=== PATIENT | female | born 1970 | race African-American/Black ===

== ENCOUNTER 2016-11-01 20:00 | Observation (INO) ==
[2016-11-01] MEDS ORDERED: cloNIDine 0.1 MG TABLET PO STA (21:07)
[2016-11-01] MEDS ORDERED: ONDANSETRON 4 MG/2 ML VIAL IV STA (21:07)
[2016-11-01] MEDS ORDERED: SODIUM CHLORIDE 0.9% 500 ML IV STA (21:07)
[2016-11-01] MEDS ORDERED: MECLIZINE 25 MG TABLET PO STA (21:07)
[2016-11-01 21:48] LABS: Basophils % 0.3 % (0.0-0.8); Eosinophils # 0.1 10*3/uL (0.0-0.87); Eosinophils % 0.9 % (0.00-10.9); Hemoglobin 12.1 GM/DL (12.0-16.0); Immature Granulocytes % 0.4 %; Immature Granulocytes Absolute 0.03 #; Lymphocytes # 1.9 10*3/uL (1.4-4.0); Lymphocytes % 24.3 % (21.3-54.2); Mean Corpuscular HGB Conc 32.7 GM/DL (32-36); Mean Corpuscular Hemoglobin 27 PG (27-34); Mean Corpuscular Volume 81.9 FL (87-102); Mean Platelet Volume 10.5 FL (9.6-12.0); Monocytes # 0.5 10*3/uL (0.11-0.8); Monocytes % 6.1 % (1.7-12.7); Neutrophils # 5.4 10*3/uL (1.4-7.4); Platelet Count 267 T/CUMM (130-400); Red Blood Count 4.52 MC/CUMM (3.8-5.5); Red Cell Distribution Width 12.9 % (9.3-17.3); White Blood Count 7.9 T/CUMM (4-12)
[2016-11-01] MEDS ORDERED: cloNIDine 0.1 MG TABLET ONE (21:49)
[2016-11-01] MEDS ORDERED: MECLIZINE 25 MG TABLET ONE (21:49)
[2016-11-01] MEDS ORDERED: ONDANSETRON 4 MG/2 ML VIAL ONE (21:49)
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
[2016-11-01 21:57] LABS: Apearance,Urine CLOUDY (Clear); Bilirubin,Urine Negative (Negative); Blood, Urine Negative (Negative); Glucose,Urine (UA) Negative (Negative); Ketones,Urine Negative (Negative); Mucus,Urine Occasional /LPF (Occasional); Nitrite,Urine Negative (Negative); Protein,Urine Negative; Squamous Epithelial Cell,Urine Few /HPF (0-10); Urine Color Yellow (Yellow); Urine Specific Gravity 1.016 (1.001-1.035); Urine Urobilinogen < 2.0 EU/DL (0.2-1.0); WBC,Urine 2 /HPF (0-6)
[2016-11-01 22:11] LABS: Lymphocytes 23 % (20-55); Segmented Neutrophils 70 % (50-85)
[2016-11-01 22:12] LABS: Platelet Estimate Adequate; Total Cells Counted 100
[2016-11-01 22:14] LABS: Alanine Aminotransferase 21 U/L (13-56); Albumin 3.5 G/DL (3.4-5.0); Alkaline Phosphatase 142 U/L (45-117); Aspartate Amino Transferase 15 U/L (0-37); Bilirubin,Total < 0.39 MG/DL (0.2-1.0); Blood Urea Nitrogen 12 MG/DL (7-18); Calcium 9.3 MG/DL (8.5-10.1); Glucose 100 MG/DL (74-106); Magnesium 2.3 MG/DL (1.8-2.4); Osmolality,Calculated 278.4 MOS/KG (273-304); Potassium 3.5 MMOL/L (3.5-5.1); Sodium 140 MMOL/L (136-145); Total Protein 8.4 G/DL (6.4-8.3); Troponin I Only < 0.015 NG/ML (0.00-0.045)
[2016-11-01] MEDS ORDERED: ASPIRIN EC 325 MG TABLET PO STA (23:44)
[2016-11-01] MEDS ORDERED: ASPIRIN 325 MG TABLET ONE (23:49)
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
[2016-11-02] MEDS ORDERED: PROMETHAZINE 25 MG/1 ML VIAL IM PRN (00:22)
[2016-11-02] MEDS ORDERED: ONDANSETRON 4 MG/2 ML VIAL IV PRN (00:22)
[2016-11-02] MEDS: SODIUM CHLORIDE 0.9% 1,000 ML IV SCH (01:05)
[2016-11-02 03:32] LABS: Barbiturates Screen,Urine Negative (Negative); Benzodiazepines Screen,Urine Negative (Negative); Cannabinoid Screen,Urine Negative (Negative); Opiate Screen,Urine Negative (Negative); Phencyclidine Screen,Urine Negative (Negative)
[2016-11-02 03:37] LABS: Troponin I Only < 0.015 NG/ML (0.00-0.045)
[2016-11-02 03:43] LABS: Risk Ratio 3.35
[2016-11-02 05:22] LABS: Basophils % 0.1 % (0.0-0.8); Eosinophils % 0.6 % (0.00-10.9); Hematocrit 35.5 VOL% (35.7-47.0); Hemoglobin 11.4 GM/DL (12.0-16.0); Immature Granulocytes % 0.3 %; Immature Granulocytes Absolute 0.02 #; Lymphocytes # 2.4 10*3/uL (1.4-4.0); Lymphocytes % 35.2 % (21.3-54.2); Mean Corpuscular HGB Conc 32.1 GM/DL (32-36); Mean Corpuscular Hemoglobin 26 PG (27-34); Mean Corpuscular Volume 81.8 FL (87-102); Mean Platelet Volume 10.9 FL (9.6-12.0); Monocytes # 0.4 10*3/uL (0.11-0.8); Monocytes % 5.7 % (1.7-12.7); Neutrophils % 58.1 % (38.7-73.9); Platelet Count 270 T/CUMM (130-400); Red Blood Count 4.34 MC/CUMM (3.8-5.5); Red Cell Distribution Width 12.9 % (9.3-17.3); White Blood Count 6.9 T/CUMM (4-12)
[2016-11-02 06:06] LABS: Albumin 3.2 G/DL (3.4-5.0); Bilirubin,Total 0.4 MG/DL (0.2-1.0); Calcium 8.7 MG/DL (8.5-10.1); Magnesium 2.3 MG/DL (1.8-2.4); Osmolality,Calculated 278.4 MOS/KG (273-304); Potassium 3.9 MMOL/L (3.5-5.1); Risk Ratio 3.66; Thyroid Stimulating Hormone 0.743 uIU/ml (0.358-3.74); Total Protein 7.1 G/DL (6.4-8.3)
[2016-11-02 06:13] LABS: Eosinophils 1 % (0-10); Lymphocytes 26 % (20-55); Platelet Estimate Adequate; Polychromasia Slight; Segmented Neutrophils 67 % (50-85); Target Cells Slight; Total Cells Counted 100
--- NOTE | 2016-11-02 06:34 | CT Report ---
History is dizziness The ventricles are normal in size. No acute intracranial hemorrhage, mass effect, or evidence of acute cortical stroke seen. Impression: No acute intracranial pathology seen. The CT exam was performed using one or more of the following dose reduction techniques: Automated exposure control, adjustment of the mA and/or kV according to patient size, or use of iterative reconstruction technique. PROCEDURE INTERPRETED AT [facility] DEPARTMENT OF RADIOLOGY Final Report Signed by: Dr. Rose Rodriguez
--- NOTE | 2016-11-02 06:36 | EKG Report ---
Stationary ECG Study [facility] ER Test Date: 11/01/2016 9:30:14 PM Pat Name: MIMA AMOS Department: Room: 528 Gender: F Medical Staff Manager: : 1970 Requested by: Chano Lugo Order Number: [id number] Joe MD: TAYA KO Intervals Cardale Rate: 58 P: 50 MO: 175 QRS: 30 QRSD: 87 T: 37 QT: 426 QTc: 423 Interpretive Statements SINUS RHYTHM MINIMAL VOLTAGE CRITERIA FOR LVH, CONSIDER NORMAL VARIANT Electronically Signed On 11-02-16 07:02:32 CDT by TAYA KO [email or web address]
--- NOTE | 2016-11-02 07:39 | XRay Report ---
Exam: XR chest 1V portable Indication: Shortness of breath Comparison study: None Findings: The heart, mediastinum, and bony structures are within normal limits. There is no focal consolidation, pneumothorax or pleural effusion identified. Impression: No acute cardiopulmonary process. PROCEDURE INTERPRETED AT [facility] DEPARTMENT OF RADIOLOGY Final Report Signed by: Nikita Lemons
--- NOTE | 2016-11-02 07:49 | Ultrasound Report ---
History his confusion Grayscale, spectral Doppler, and color flow analysis performed and interpreted No significant plaque seen on the two-dimensional images Systolic velocities are 100 on the right and 105 on the left Peak systolic ratios are 1.5 the right and 1.9 on the left There is antegrade flow in both vertebral arteries Impression: No significant plaque with no significant stenosis by NASCET criteria PROCEDURE INTERPRETED AT [facility] DEPARTMENT OF RADIOLOGY Final Report Signed by: Dr. Rose Rodriguez
--- NOTE | 2016-11-02 08:14 | XRay Report ---
History short of breath Comparison 11/01/2016 The heart is normal in size for technique. The lungs are clear. Impression: No acute pathology seen. PROCEDURE INTERPRETED AT [facility] DEPARTMENT OF RADIOLOGY Final Report Signed by: Dr. Rose Rodriguez
[2016-11-02] MEDS: amLODIPine 10 MG TABLET PO SCH (08:43)
[2016-11-02] MEDS: PANTOPRAZOLE 40 MG TABLET PO SCH (08:44)
[2016-11-02] MEDS: ENOXAPARIN 40 MG/0.4 ML SYRINGE SUBCUT SCH (08:46)
[2016-11-02] MEDS: ASPIRIN EC 81 MG TABLET PO SCH (08:46)
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
--- NOTE | 2016-11-02 13:08 | Magnetic Resonance Report ---
History: Confusion. Dizziness. Transient slurred speech Date: 11/02/2016 Study: MRI brain without IV contrast Comparison exam: No previous brain MRI available The brain was imaged in 3 planes on the 1.2 Ceci open magnet without IV contrast, to include diffusion, T2, FLAIR, gradient echo, and T1-weighted sequences. The ventricles are midline in position without evidence of hydrocephalus. There is no Chiari I malformation. There is no gross pituitary mass. There is no evidence of acute ischemia on the diffusion sequence. There is no mass or parenchymal hemorrhage. There is no extra-axial hematoma. There is a normal flow void in the superior sagittal sinus. There is no gross flow abnormality in the eek of Monique area. Impression: Normal noncontrast MRI brain PROCEDURE INTERPRETED AT [facility] DEPARTMENT OF RADIOLOGY Final Report Signed by: Dr. Eileen Chaudhary
--- NOTE | 2016-11-02 15:38 | Neurology Consult Note ---
History of Present Illness History of present illness: 46 years old right-handed -[place] lady without significant past medical history admitted the hospital with one episode of dizziness and acute vertigo along with nausea and some vomiting. Patient reported that she does get dizzy and vertigo spells off and on almost 3 or 4 times a month. She also reported she gets headaches 3 or 4 times a month as well. She is to get very frequent migraine headaches but that has gotten better. Patient reported that she does get dizzy and vertigo spells associated with nausea. She also has been having off and on left hand numbness and tingling. MRI of the brain is negative. Home Medications Medication Instructions Recorded Confirmed Type No Known Home Medications [No 11/02/16 11/02/16 History Known Home Medications] Allergies Allergy/AdvReac Type Severity Reaction Status Date / Time morphine Allergy Unknown/Unable Verified 11/01/16 20:45 to obtain 12 point system: reviewed and no additional remarkable complaints except as stated Medical,Surgical,& Family Hx - Medical History Neurology: History of: Vertigo Genitourinary: History of: Kidney Stones - Surgical History HEENT Surgeries: Surgical HX of: Tonsilectomy & Adenoidectomy Reproductive Surgeries: Surgical HX of;: Tubal Ligation Orthopedic Surgeries: Surgical HX of;: Orthopedic Surgery - Family History Family History: Reports;: Family Cancer, Family Diabetes, Family Hypertension, Family Stroke - Social History Smoking Status: Never smoker Frequency of Alcohol Use: None Type of Drug Use: None Exam - Constitutional Vitals: Period Temp Pulse Resp BP Sys/Reinoso Pulse Ox Last 24 Hr 97.3 F-98.4 F 46-72 16-18 101-163/63-108 97-100 Exam: GENERAL: Patient is in no acute distress. NECK: Neck is supple. There is no JVD. No carotid bruits present. No thyroid masses. CVS: First and second heart sounds are normal. There is no S3 present. Regular rate and rhythm. RESPIRATORY: Lungs are clear to auscultation without any rales or rhonchi. ABDOMEN: Soft and non-tender. Bowel sounds are present. There is no hepatosplenomegaly. EXT: There is no palpable edema. Peripheral pulses are present. Skin: No rashes Central Nervous system: General: Alert, awake and Oriented x 3 Speech: Fluent Comprehension: Intact and normal Facial expressions: Normal Cranial Nerves: CN1/Olfactory: Normal CN II/ Optic: Normal, Visual Valdez unreliable CN III, and : BIPIN & EOMI CN V: Normal & intact CN VII: face is symmetric CNVIII: Normal CN XI/X/XI/XII: Intact and Normal Motor: Bulk and Tone is normal. Strength in the right 5/5 Strength in the left 5/5 Sensory: Decreased for all the modalities of PP, LT and temp sense in the left median nerve distribution Reflexes: 1+ and symmetrical Cerebellar function: Normal finger to nose and heel to pagan testing. Toes: Equivocal Gait: Normal heel to heel and toe to toe and tandem walk. Results - Labs CBC & BMP: 11/02/16 03:30 11/02/16 03:30 Assessment and Plan (1) Basilar migraine Status: Acute Assessment and plan: Elavil 25 mg p.o. at bedtime Current Visit: Yes (2) Carpal tunnel syndrome Status: Acute Assessment and plan: Nerve conduction study/EMG as an outpatient Okay to go home when okay with PCP Follow-up in 2 weeks Current Visit: Yes
[2016-11-02] MEDS ORDERED: AMITRIPTYLINE 25 MG TABLET PO SCH (21:00)
[2016-11-03] MEDS: SODIUM CHLORIDE 0.9% 1,000 ML IV SCH (03:26)
[2016-11-03] MEDS: amLODIPine 10 MG TABLET PO SCH (09:58)
[2016-11-03] MEDS: ASPIRIN EC 81 MG TABLET PO SCH (09:59)
[2016-11-03] MEDS: ENOXAPARIN 40 MG/0.4 ML SYRINGE SUBCUT SCH (09:59)
[2016-11-03] MEDS: PANTOPRAZOLE 40 MG TABLET PO SCH (09:59)
--- NOTE | 2016-11-03 11:34 | Discharge Summary ---
Hospital Course - Hospital Course Hospital Course: 46 years old right-handed -[place] lady without significant past medical history admitted the hospital with one episode of dizziness and acute vertigo along with nausea and some vomiting. Patient reported that she does get dizzy and vertigo spells off and on almost 3 or 4 times a month. She also reported she gets headaches 3 or 4 times a month as well. She is to get very frequent migraine headaches but that has gotten better. Patient reported that she does get dizzy and vertigo spells associated with nausea. She also has been having off and on left hand numbness and tingling. MRI of the brain is negative. neurology consulted , diagnosed Basilar Migraine started on elevail po , pt did well dizziness and vertigo improved , neurology OK her to be discharged Diagnosis - Discharge Diagnosis (1) Basilar migraine Status: Acute (2) Hypertension Status: Acute Specialty Discharge - Follow Up or Referrals Follow up with: Yamil Jacob MD [Physician] - 12/02/16 10:00 am Discharge Plan - Discharge Data Condition at Discharge: Stable Discharge Diet: low fat, low cholesterol Driving: no restrictions - Discharge Medications New Amitriptyline [Elavil] 25 mg PO BEDTIME #30 tablet amLODIPine [Norvasc] 10 mg PO DAILY #90 tablet - Follow Up or Referral Follow Up: Yamil Jacob MD [Physician] - 12/02/16 10:00 am - Forms/Instructions Instructions: Transient Ischemic Attack (DC), Migraine Headache (DC), Heart Healthy Diet (DC), Self Care Measures After a Stroke (DC), Hypertension (DC) Exam - Constitutional Vitals: Period Temp Pulse Resp BP Sys/Reinoso Pulse Ox Last 24 Hr 97.1 F-98.2 F 56-70 16-20 97-117/60-68 95-100 heent, pearle neck, supple. chest clear. cvs, s1 s2. abd, soft, bs+ plumbing manager, alert orientedx3 afocal DS: Provider Date of admission: 11/01/16 23:45 Primary care physician: . No PCP Attending physician on admission: Cristobal Medley MD Consults: 11/02/16 00:22 Consult to Case Mgmt/Social Srvs [CONS] Routine Reason for Case Mgmt/Social Srvs: Discharge Planning Consult to Physician [CONS] Routine Comment: TIA Consulting Provider: Yamil Jacob Person Notified: HANNY Date Notified: 11/02/16 Time Notified: 09:07 11/02/16 08:46 Consult to Occupational Therapy [CONS] Routine Reason for Occupational Therapy: Evaluate and Treat Consult to Physical Therapy [CONS] Routine Reason for Physical Therapy: Evaluate and Treat Discharging clinician: Justa Belcher MD
[2016-11-03 11:39] VITALS: BP 102/68
== END 2016-11-03 15:00 | disposition home or self-care (01) ==
LOC: N.ED 20:00 → OBSVTOIN 23:45 → N.EDINP 23:45 → INTOOBSV 23:45 → SUATTDRO 23:45 → N.5E 11-02 00:12
PROVIDERS: ADMIT Internal Medicine; ATTEND Emergency Medicine